=== PATIENT | female | born 1995 | race Caucasian/White ===

== ENCOUNTER 2023-05-01 15:50 | Emergency (ER) | payer SELFPAY ==
[~2023-05-01] VITALS: Ht 167.6 cm; Wt 49.9 kg
[2023-05-01 18:59] VITALS: BP 109/76; TEMP 97.9; O2SAT 98
== END 2023-05-01 18:59 | disposition home or self-care (01) ==
LOC: ER 15:53
DX: R07.9 Chest pain, unspecified (principal); Z88.0 Allergy status to penicillin
CPT/HCPCS: 71045-TC